=== PATIENT | female | born 1930 | race Caucasian/White ===

== ENCOUNTER 2017-06-03 13:45 | Emergency (ER) | payer OTHER ==
[~2017-06-03] VITALS: Ht 167.6 cm; Wt 72.6 kg
--- NOTE | ~2017-06-03 | EKG ---
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
[2017-06-03] MEDS ORDERED: NAMENDA 10 MG T10 MG PO (14:28)
[2017-06-03] MEDS ORDERED: VENTOLIN HFA 1818 GM INH (14:28)
[2017-06-03] MEDS ORDERED: UNICOMPLEX M TA1 TA1 PO (14:28)
[2017-06-03] MEDS ORDERED: PROBIOTIC1 EAC1 PO (14:28)
[2017-06-03] MEDS ORDERED: NORVASC5 MG PO (14:28)
[2017-06-03] MEDS ORDERED: ALBUTEROL2.5 MG/31 INH (14:29)
[2017-06-03] MEDS ORDERED: MAPAP325 MG PO (14:29)
[2017-06-03] MEDS ORDERED: VITAMIN D3400 UNIT PO (14:29)
[2017-06-03 14:30] LABS: BASOPHILS 0.5 % (0.0-2.0); EOSINOPHILS 1.6 % (0.0-3.0); HEMATOCRIT 36.4 % (37.0-47.0); HEMOGLOBIN 11.9 gm/dL (12.0-15.0); LYMPHOCYTES 32.3 % (24.0-44.0); MCH 30.5 pg (26.0-34.0); MCHC 32.6 g/dL (28.0-37.0); MCV 93.4 fL (80.0-100.0); MONOCYTES 11.3 % (1.0-8.0); PLATELET COUNT 121 thou/uL (150-400); POLYS 54.3 % (36.0-66.0); RDW 16.3 % (10.5-14.5); WBC 5.5 thou/uL (4.0-11.0)
[2017-06-03] MEDS ORDERED: TUSSIN15 MG/5 ML PO (14:30)
[2017-06-03] MEDS ORDERED: REMERON15 MG PO (14:30)
[2017-06-03 14:32] LABS: MANUAL DIFF NO
[2017-06-03 14:34] LABS: ABG SAMPLE TYPE ARTERIAL; BE(vivo) 3.3 mmol/L (-2 to +3); LACTATE 0.95 mmol/L (0.5-2.0); O2(CT) 13.8 mL/dL (15.0-23.0); PCO2 48.5 mmHg (35.0-45.0); pH 7.394 (7.360-7.450); sO2 82.2 % (92.0-98.0); tCO2 30.5 mmol/L (24.0-30.0)
[2017-06-03 14:35] LABS: O2Hb 80.1 % (92.0-98.0); PO2 46.9 mmHg (80.0-100.0); STICK SITE R.RADIAL
[2017-06-03 14:40] LABS: ANION GAP 4 mmol/L (7-16); BUN 14 mg/dL (7-18); CALCIUM 8.7 mg/dL (8.5-10.1); CHLORIDE 110 mmol/L (98-107); CO2 33 mmol/L (21-32); CREATININE 1.1 mg/dL (0.6-1.0); GLUCOSE 115 mg/dL (74-106); POTASSIUM 3.9 mmol/L (3.5-5.1); SODIUM 147 mmol/L (136-145)
[2017-06-03 14:52] LABS: NT-PRO BRAIN NAT PEPTIDE 601 pg/mL (<300); TROPONIN-I < 0.04 ng/mL (<0.04-0.07)
[2017-06-03] MEDS ORDERED: LEVAQUIN 500 M500 M1 PO (15:51)
[2017-06-03 17:02] VITALS: BP 109/47
== END 2017-06-03 17:04 ==
LOC: ER 13:45
PROVIDERS: Emergency Medicine
DX: R41.82 Altered mental status, unspecified (principal); R06.02 Shortness of breath

== ENCOUNTER 2017-06-27 13:53 | Emergency (ER) | payer OTHER ==
[~2017-06-27] VITALS: Ht 152.4 cm; Wt 63.5 kg
--- NOTE | ~2017-06-27 | EKG ---
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1930 Requested By: Abi France Order Number: [id number] MD: Mina Kaiser Measurements Intervals [place] Rate: 58 P: SC: QRS: -48 QRSD: 95 T: 9 QT: 465 QTc: 457 Interpretive Statements Sinus rhythm LAD, consider left anterior fascicular block Early R-wave transition nonspecific ST segment and T-wave abnormalities Compared to ECG 06/03/2017 14:35:12 Early R-wave transition is present Electronically Signed On 06-28-2017 14:10:07 CDT by Mina Kaiser [email or web address] <ELECTRONICALLY SIGNED> By: Mina Kaiser MD 06/28/17 1410 1435 1435 Mina Kaiser MD /LACEY
--- NOTE | ~2017-06-27 | EKG ---
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1930 Requested By: Abi France Order Number: [id number] MD: Mina Kaiser Measurements Intervals [place] Rate: 83 P: NE: QRS: -24 QRSD: 97 T: 57 QT: 450 QTc: 529 Interpretive Statements Sinus rhythm with baseline artifact Borderline left axis deviation Abnormal R-wave progression, early transition nonspecific T-wave abnormalities Compared to ECG 06/03/2017 14:35:12 No significant change Electronically Signed On 06-28-2017 14:12:03 CDT by Mina Kaiser [email or web address] <ELECTRONICALLY SIGNED> By: Mina Kaiser MD 06/28/17 1412 1454 1454 Mina Kaiser MD /LACEY
[~2017-06-27 13:53] MED LIST: ALBUTEROL2.5 MG/31 INH; LEVAQUIN 500 M500 M1 PO; MAPAP325 MG PO; NAMENDA 10 MG T10 MG PO; NORVASC5 MG PO; PROBIOTIC1 EAC1 PO; REMERON15 MG PO; TUSSIN15 MG/5 ML PO; UNICOMPLEX M TA1 TA1 PO; VENTOLIN HFA 1818 GM INH; VITAMIN D3400 UNIT PO
[2017-06-27 14:36] LABS: URINE BLOOD NEGATIVE (Negative); URINE COLOR YELLOW; URINE GLUCOSE-RANDOM* NEGATIVE (Negative); URINE KETONES TRACE (Negative); URINE NITRITE NEGATIVE (Negative); URINE PROTEIN (DIPSTICK) TRACE (Negative); URINE SPECIFIC GRAVITY 1.015 (1.003-1.035)
[2017-06-27 14:41] LABS: URINE BILIRUBIN NEGATIVE (Negative)
[2017-06-27 15:04] LABS: ANION GAP 5 mmol/L (7-16); BUN 14 mg/dL (7-18); CALCIUM 9.5 mg/dL (8.5-10.1); CHLORIDE 108 mmol/L (98-107); CO2 32 mmol/L (21-32); CREATININE 0.9 mg/dL (0.6-1.0); GLUCOSE 85 mg/dL (74-106); POTASSIUM 4.1 mmol/L (3.5-5.1); SODIUM 145 mmol/L (136-145)
[2017-06-27 15:12] LABS: ALBUMIN 2.6 g/dL (3.4-5.0); ALKALINE PHOSPHATASE 76 U/L (46-116); SGOT 22 U/L (15-37); SGPT 13 U/L (30-65); TOTAL BILIRUBIN 0.4 mg/dL (<0.1-1.0); TOTAL PROTEIN 5.9 g/dL (6.4-8.2); TROPONIN-I < 0.04 ng/mL (<0.04-0.07)
[2017-06-27 15:12] LABS: ABSOLUTE NEUTROPHILS 2.9 thou/uL (1.4-8.2); BASOPHILS 0.3 % (0.0-2.0); EOSINOPHILS 3.5 % (0.0-3.0); HEMATOCRIT 36.6 % (37.0-47.0); HEMOGLOBIN 11.9 gm/dL (12.0-15.0); LYMPHOCYTES 28.4 % (24.0-44.0); MCH 29.7 pg (26.0-34.0); MCHC 32.6 g/dL (28.0-37.0); MCV 91.3 fL (80.0-100.0); MONOCYTES 8.6 % (1.0-8.0); PLATELET COUNT 136 thou/uL (150-400); POLYS 59.2 % (36.0-66.0); RDW 15.3 % (10.5-14.5)
[2017-06-27 15:14] LABS: MANUAL DIFF NO
[2017-06-27 16:08] LABS: MAGNESIUM 1.5 mg/dL (1.8-2.4)
[2017-06-27 19:49] VITALS: BP 118/54
== END 2017-06-27 19:50 ==
LOC: ER 13:53
PROVIDERS: Physician Assistant
DX: M62.838 Other muscle spasm (principal); Z88.6 Allergy status to analgesic agent